=== PATIENT | female | born 1945 | race Caucasian/White ===

== ENCOUNTER 2021-04-13 11:05 | Observation (INO) ==
--- NOTE | 2020-09-16 15:51 | PAT Medication Instructions ---
Medication Instructions Date of Service September 16, 2020 Home Medications Medication Instructions Recorded hydrocodone 5 mg-acetaminophen 325 1 tab PO TID PRN #90 tab 08/26/20 mg tablet gabapentin 300 mg capsule 300 mg PO BID #60 cap 09/16/20 ssrvvxy-iquzxabpd-ajyo tablet 1 tab PO QAM cholecalciferol (vitamin D3) 50 mcg (2,000 unit) capsule 50 mcg PO QAM clotrimazole 1 % topical cream 1 applic TOPICAL BID diclofenac sodium 1 % topical gel (Voltaren) 2 g TOPICAL QID PRN guaifenesin 600 mg tablet, extended release 12 hr (Mucinex) 600 mg PO BID PRN ipratropium 18 mcg-albuterol 103 mcg/actuation aerosol inhaler 2 spray INHALATION QID PRN naloxone 0.4 mg/mL injection solution 0.4 mg IM Q2M PRN peg 400-propylene glycol 0.4 %-0.3 % eye drops (Systane (propylene glycol)) 1 drp OPHTHALMIC (EYE) DAILY PRN pseudoephedrine HCl 30 mg tablet (Sudafed) 30 mg PO Q6H PRN simethicone 125 mg capsule (Gas Relief (simethicone)) 125 mg PO DAILY PRN trazodone 50 mg tablet 25 mg PO HS fluticasone propionate 50 mcg/actuation nasal spray,suspension 2 spray INTRANASAL DAILY PRN hydrocodone 5 mg-acetaminophen 325 mg tablet 1 tab PO TID PRN loratadine 10 mg tablet 10 mg PO QAM meloxicam 7.5 mg tablet 7.5 mg PO QAM metoprolol succinate 50 mg tablet,extended release 24 hr 50 mg PO QAM mirabegron 25 mg tablet,extended release 24 hr (Myrbetriq) 25 mg PO QAM gabapentin 300 mg capsule 300 mg PO BID Continue as directed naloxone 0.4 mg/mL injection solution 0.4 mg IM Q2M PRN (if needed) ASK your surgeon for instructions meloxicam 7.5 mg tablet 7.5 mg PO QAM STOP taking 24 hours before surgery clotrimazole 1 % topical cream 1 applic TOPICAL BID diclofenac sodium 1 % topical gel (Voltaren) 2 g TOPICAL QID PRN DO NOT take the morning of surgery updixkv-zqngaoxjj-eobb tablet 1 tab PO QAM cholecalciferol (vitamin D3) 50 mcg (2,000 unit) capsule 50 mcg PO QAM guaifenesin 600 mg tablet, extended release 12 hr (Mucinex) 600 mg PO BID PRN pseudoephedrine HCl 30 mg tablet (Sudafed) 30 mg PO Q6H PRN simethicone 125 mg capsule (Gas Relief (simethicone)) 125 mg PO DAILY PRN loratadine 10 mg tablet 10 mg PO QAM mirabegron 25 mg tablet,extended release 24 hr (Myrbetriq) 25 mg PO QAM Take morning of surgery With a small sip of water, OTHERWISE NOTHING TO EAT OR DRINK AFTER MIDNIGHT: ipratropium 18 mcg-albuterol 103 mcg/actuation aerosol inhaler 2 spray INHALATION QID PRN (if needed) peg 400-propylene glycol 0.4 %-0.3 % eye drops (Systane (propylene glycol)) 1 drp OPHTHALMIC (EYE) DAILY PRN (if needed) fluticasone propionate 50 mcg/actuation nasal spray,suspension 2 spray INTRANASAL DAILY PRN (if needed) hydrocodone 5 mg-acetaminophen 325 mg tablet 1 tab PO TID PRN (okay to take up to 4 hours prior to surgery if needed) metoprolol succinate 50 mg tablet,extended release 24 hr 50 mg PO QAM gabapentin 300 mg capsule 300 mg PO BID Take evening before surgery guaifenesin 600 mg tablet, extended release 12 hr (Mucinex) 600 mg PO BID PRN (if needed) ipratropium 18 mcg-albuterol 103 mcg/actuation aerosol inhaler 2 spray INHALATION QID PRN (if needed) peg 400-propylene glycol 0.4 %-0.3 % eye drops (Systane (propylene glycol)) 1 drp OPHTHALMIC (EYE) DAILY PRN (if needed) pseudoephedrine HCl 30 mg tablet (Sudafed) 30 mg PO Q6H PRN (if needed) simethicone 125 mg capsule (Gas Relief (simethicone)) 125 mg PO DAILY PRN (if needed) trazodone 50 mg tablet 25 mg PO HS fluticasone propionate 50 mcg/actuation nasal spray,suspension 2 spray I NTRANASAL DAILY PRN (if needed) hydrocodone 5 mg-acetaminophen 325 mg tablet 1 tab PO TID PRN (if needed) gabapentin 300 mg capsule 300 mg PO BID Other Notes If you have any questions please call us at [phone] or [phone] or [phone] or [phone]
--- NOTE | 2020-09-17 13:43 | Anesthesiology Consultation ---
Date of Service September 17, 2020 Assessment & Plan (1) Encounter for pre-operative examination: Chart Review Chart Review: Acceptable Risk for Surgery (pending preop Covid testing results ) and Patient seen in Pre Admission Testing -Discussed c-spine results with Dr. Monroy- patient is having chronic mild neck pain- ongoing x years. No significant neurological symptoms noted with neck movement such as numbness, tingling or arm weakness. Will send FYI note to PCP informing of c-spine x rays to monitor as outpatient at PCP discretion. Pt is to call PCP if neurological symptoms occur in the future. Will need to use caution with neck movement with patient especially neck flexion. Per PAT appt on 09/17/20, patient denies and travel or large group activities. No known Covid positive contacts or Covid related symptoms. No known Covid infection in the past 90 days. Pt is vaccinated for Covid. Preop Covid testing scheduled 10/29/20= will await results. Educated on importance of self quarantining, social distancing and wearing mask in public both for the patient after Covid testing done Teaching & Discussion Pre-Anesthesia Teaching/Discussion Notes: Instructed NPO after midnight before surgery,except medications with 15 cc of water. Medication instructions provided according to the PAT guidelines. History Surgery Operation Date: 10/31/20 11:10 Proposed Procedures p Right Reverse Total Shoulder Arthroplasty - Ravindra Stark, Height/Weight Height: 4 ft 11 in Weight: 74.8 kg Allergies Allergy/AdvReac Type Severity Reaction Status Date / Time dog dander Allergy Mild Rhinitis Verified 09/17/20 13:47 Penicillins Allergy Mild as child Verified 09/11/20 10:27 doesn't remember cat dander Allergy Rhinitis Verified 09/17/20 13:47 ragweed pollen Allergy Rhinitis Verified 09/17/20 13:47 Medications Home Medications Medication Instructions Recorded Confirmed Last Taken cktxhik-bjvwmpeva-ompy tablet 1 tab PO QAM 07/01/20 09/11/20 Unknown cholecalciferol (vitamin D3) 50 50 mcg PO QAM 07/01/20 09/11/20 Unknown mcg (2,000 unit) capsule clotrimazole 1 % topical cream 1 applic TOPICAL BID 07/01/20 09/11/20 Unknown diclofenac sodium 1 % topical gel 2 g TOPICAL QID PRN 07/01/20 09/11/20 Unknown (Voltaren) guaifenesin 600 mg tablet, 600 mg PO BID PRN 07/01/20 09/11/20 Unknown extended release 12 hr (Mucinex) ipratropium 18 mcg-albuterol 103 2 spray INHALATION QID PRN 07/01/20 09/11/20 Unknown mcg/actuation aerosol inhaler naloxone 0.4 mg/mL injection 0.4 mg IM Q2M PRN 07/01/20 09/11/20 Unknown solution peg 400-propylene glycol 0.4 %-0.3 1 drp OPHTHALMIC (EYE) DAILY PRN 07/01/20 09/11/20 Unknown % eye drops (Systane (propylene glycol)) pseudoephedrine HCl 30 mg tablet 30 mg PO Q6H PRN 07/01/20 09/11/20 Unknown (Sudafed) simethicone 125 mg capsule (Gas 125 mg PO DAILY PRN 07/01/20 09/11/20 Unknown Relief (simethicone)) trazodone 50 mg tablet 25 mg PO HS tab 07/01/20 09/11/20 Unknown fluticasone propionate 50 2 spray INTRANASAL DAILY PRN 07/30/20 09/11/20 Unknown mcg/actuation nasal spray,suspension hydrocodone 5 mg-acetaminophen 325 1 tab PO TID PRN #90 tab 08/26/20 09/11/20 Un known mg tablet loratadine 10 mg tablet 10 mg PO QAM 09/11/20 09/11/20 Unknown meloxicam 7.5 mg tablet 7.5 mg PO QAM 09/11/20 09/11/20 Unknown metoprolol succinate 50 mg 50 mg PO QAM 09/11/20 09/11/20 Unknown tablet,extended release 24 hr mirabegron 25 mg tablet,extended 25 mg PO QAM 09/11/20 09/11/20 Unknown release 24 hr (Myrbetriq) gabapentin 300 mg capsule 300 mg PO BID #60 cap 09/16/20 Unknown Past Medical History Medical History (Updated 09/17/20 @ 13:51 by Darlene White PA-C) Allergic rhinitis Asthma Breathing stable Chronic back pain Chronic sinusitis Hypertension Lyme disease Dx'ed 6-7 years ago Residual word finding/memory issues Osteoarthritis Osteopenia Rheumatoid arthritis Follows with rheum- Dr Frankel Urinary incontinence Exercise / Class Metabolic Activity III < 4 Walking/Shop/Light housework (no chest pain or SOB with short distance, flat surface ambulation- uses walker for support secondary to right knee and shoulder pain ) Past Family History Family History Aunt Breast cancer Father Liver disease Alcohol abuse Mother Alzheimer disease Denies family history of Ovarian cancer Prostate cancer Colorectal cancer Past Surgical History Surgical History History of sinus surgery S/P carpal tunnel release b/l S/P cholecystectomy Status post left knee replacement Past Anesthesia History No Hx of Anesthesia Complications (with exception with PONV ) and No Family Hx of Anesthesia Complications History of PONV History of PONV (improved with IV anti-nausea medication ) and Hx of Motion Sickness (occ) Social History Smoking Status: Never smoker Do You Dip or Chew Tobacco: No Hx Alcohol Use: No Hx Substance Use: No substance use type: does not use Review of Systems Reflux- relieved OTC antacids Hx of snoring, no witnessed apnea- no hx of sleep study Patient denies chest pain, shortness of breath at rest, cough, wheezing, palpitations. No hx of seizures, stroke, LA. No hx of blood clots or blood transfusions Physical Exam Vital Signs VITALS BP 117/69 P 80 TEMP 98.6 SP02 98% RESP 16 Constitutional no acute distress ENMT Mouth: no TMJ clicking Thyromental Distance: > or= 3.5 Finger Breadths Mallampati Class: I (smaller airway ) Missing molars Neck + short neck and + limited neck extension (mild to modearte ) Respiratory normal respiratory effort; no respiratory distress Auscultation: lungs clear to auscultation bilaterally; no wheezes Cardiovascular Rate/Rhythm: regular rate and regular rhythm Heart Sounds: no murmur Vessels: no carotid bruit Musculoskeletal Spine: no pain with cervical ROM Extremities: extremities normal to inspection Psychiatric Orientation: alert Lab Results Anesthesia Preop Results Results Anesthesia Widget: WBC 7.40 K/uL (4.8-10.8) 09/17/20 Hgb 15.0 g/dL (12.0-16.0) 09/17/20 Hct 46.7 % (37-47) 09/17/20 Plt 381 K/uL (130-400) 09/17/20 Na 139 mmol/L (136-145) 09/17/20 K 4.7 mmol/L (3.5-5.1) 09/17/20 Cl 107 mmol/L (98-107) 09/17/20 CO2 27 mmol/L (21-32) 09/17/20 BUN 22 mg/dl (7-18) H 09/17/20 Creat 0.89 mg/dl (0.6-1.2) 09/17/20 Glucose Level 95 mg/dl (70-99) 09/17/20 PT 10.0 Seconds (9.0-12.0) 09/17/20 PTT 26.0 Seconds (21.0-31.0) 09/17/20 INR 1.0 (0.9-1.1) 09/17/20 Blood Type B Positive 09/17/20 Antibody Screen NEGATIVE 09/17/20 Testing Electrocardiogram Date: 09/17/20 Findings: + NSR @ (62bpm ) Normal EKG per cardio Chest X-Ray Date: 09/17/20 Findings: + NAD Moderate hiatus hernia. Tortuous thoracic aorta. Cervical Spine Date: 09/17/20 FINDINGS: Demineralized appearance of the bones. Severe intervertebral disc space narrowing with moderate spondylitic spurring redemonstrated at C4-C5, C5- C6 and C6-C7. Moderate to severe multilevel facet arthrosis redemonstrated along with severe degeneration at C1-C2 with chronic erosions of the dens. 4 mm anterolisthesis C3 on C4 with neutral and flexion, resolving with extension. Alignment is otherwise satisfactory. The C5-C7 levels are suboptimally visualized secondary to overlying soft tissue. No prevertebral edema. Unchanged lucent focus of the occipital calvarium. IMPRESSION: 4 mm anterolisthesis C3 on C4 appears unchanged from the 05/14/2020 exam. This however does resolve with extension suggestive of instability. Demineralized appearance of the bones with degenerative changes as above.
--- NOTE | 2021-04-09 14:10 | Anesthesiology Consultation ---
Date of Service April 09, 2021 Assessment & Plan (1) Encounter for pre-operative examination: Chart Review Chart Review: Acceptable Risk for Surgery (from anesthesia standpoint pending preop Covid testing and DOS labs ) and Patient NOT seen in Pre Admission Testing -No preop labs ordered- will need CBC with diff, PRP and coags for DOS. Pt seen in PAT 09/17/20 (rescheduled due to Covid surge)- per anesthesia consultation from 09/17/20= "-Discussed c-spine results with Dr. Monroy- patient is having chronic mild neck pain- ongoing x years. No significant neurological symptoms noted with neck movement such as numbness, tingling or arm weakness. Will send FYI note to PCP informing of c-spine x rays to monitor as outpatient at PCP discretion. Pt is to call PCP if neurological symptoms occur in the future. Will need to use caution with neck movement with patient especially neck flexion." Per nursing assessment 04/08/2021, patient denies any recent travel. No known Covid infection in the past 90 days. Patient is fully vaccinated for Covid. No known Covid positive exposures or Covid related symptoms. Preop Covid testing 04/09/2021 = results pending Patient was seen by rheumatology 03/13/2021 = seen for follow-up on osteoarthritis, Sjogren's, inflammatory arthritis, fibromyalgia. Has reported benefit from Plaquenil in the past as well as prednisone and has a history of Sjogren's/seronegative arthritis. Will start Plaquenil 200 mg daily. Will update blood work. Continue current medications for fibromyalgia. Follow-up in 3 to 4 months. History Surgery Operation Date: 04/13/21 12:30 Proposed Procedures p Right Reverse Total Shoulder Arthroplasty - Ravindra Stark DO Height/Weight Height: 5 ft Weight: 74.843 kg Allergies Allergy/AdvReac Type Severity Reaction Status Date / Time cat dander Allergy Mild Rhinitis Verified 04/08/21 13:19 dog dander Allergy Mild Rhinitis Verified 04/08/21 13:19 ragweed pollen Allergy Mild Rhinitis Verified 04/08/21 13:19 Penicillins Allergy Unknown as child Verified 04/08/21 13:19 doesn't remember Medications Home Medications Medication Instructions Recorded Confirmed Last Taken sjpchxz-yupykvppm-sgru tablet 1 tab PO QAM 07/01/20 04/08/21 Unknown cholecalciferol (vitamin D3) 50 50 mcg PO QAM 07/01/20 04/08/21 Unknown mcg (2,000 unit) capsule clotrimazole 1 % topical cream 1 applic TOPICAL BID 07/01/20 04/08/21 Unknown diclofenac sodium 1 % topical gel 2 g TOPICAL QID PRN 07/01/20 04/08/21 Unknown (Voltaren) ipratropium 18 mcg-albuterol 103 2 spray INHALATION QID PRN 07/01/20 04/08/21 Unknown mcg/actuation aerosol inhaler peg 400-propylene glycol 0.4 %-0.3 1 drp OPHTHALMIC (EYE) DAILY PRN 07/01/20 04/08/21 Unknown % eye drops (Systane (propylene glycol)) pseudoephedrine HCl 30 mg tablet 30 mg PO Q6H PRN 07/01/20 04/08/21 Unknown (Sudafed) simethicone 125 mg capsule (Gas 125 mg PO DAILY PRN 07/01/20 04/08/21 Unknown Relief (simethicone)) trazodone 50 mg tablet 25 mg PO HS tab 07/01/20 04/08/21 Unknown fluticasone propionate 50 2 spray INTRANASAL DAILY PRN 07/30/20 04/08/21 Unknown mcg/actuation nasal spray,suspension metoprolol succinate 50 mg 50 mg PO QAM 09/11/20 04/08/21 Unknown tablet,extended release 24 hr aspirin 81 mg tablet,delayed 81 mg PO DAILY 09/30/20 04/08/21 Unknown release (Adult Aspirin Regimen) oxybutynin chloride 5 mg tablet 5 mg PO DAILY #30 tab 09/30/20 04/08/21 Unknown loratadine 10 mg tablet 10 mg PO QAM #90 tab 11/05/20 04/08/21 Unknown miscellaneous medical supply See Rx Instructions .ROUTE 11/18/20 12/23/20 Unknown .COMPLEX #1 ea miscellaneous medical supply See Rx Instructions .ROUTE 11/18/20 12/23/20 Unknown .COMPLEX #1 ea mirabegron 50 mg tablet,extended 50 mg PO DAILY 12/01/20 04/08/21 Unknown release 24 hr (Myrbetriq) gabapentin 300 mg capsule 300 mg PO BID #60 cap 03/09/21 04/08/21 Unknown venlafaxine 75 mg capsule,extended 225 mg PO DAILY #90 cap 03/09/21 04/08/21 Unknown release 24 hr (Effexor XR) hydrocodone 5 mg-acetaminophen 325 1 tab PO TID PRN #90 tab 04/06/21 04/08/21 Unknown mg tablet meloxicam 7.5 mg tablet 7.5 mg PO BID 04/08/21 04/08/21 Unknown nitrofurantoin 100 mg PO Q12H 7 Days #14 cap 04/09/21 Unknown monohydrate/macrocrystals 100 mg capsule (Macrobid) Past Medical History Medical History (Updated 04/09/21 @ 14:20 by Darlene White PA-C) Allergic rhinitis Asthma No inhaler rx Chronic back pain Chronic sinusitis Depression On Effexor per 11/2020 PCP note Frequent UTI GERD (gastroesophageal reflux disease) Hypertension Irregular heart beat NO CARDS Lyme disease Dx'ed 6-7 years ago Residual word finding/memory issues Neuropathy Osteopenia Rheumatoid arthritis Follows with rheum- Dr Frankel Sjogrens syndrome Urinary incontinence Follows with urology Past Family History Family History Aunt Breast cancer Father Liver disease Alcohol abuse Hypertension Mother Alzheimer disease Other No family history of adverse response to anesthesia Denies family history of Ovarian cancer Prostate cancer Colorectal cancer Past Surgical History Surgical History History of colonoscopy History of sinus surgery History of tonsillectomy and adenoidectomy Nausea and vomiting after administration of anesthetic agent S/P carpal tunnel release b/l S/P cholecystectomy Status post left knee replacement George teeth removed Social History Smoking Status: Never smoker Do You Dip or Chew Tobacco: No Hx Alcohol Use: No Hx Substance Use: No substance use type: does not use Testing Laboratory Results 04/09/21= UA: 100+ protein, moderate urine blood, positive urine nitrite, large leukocyte esterase, >100,000 bacteria (started on Macrobid 04/09/21 by urology- urology waiting on final urine culture for sensitivity- surgeon's office was updated- will leave to Dr. Stark discretion on how to proceed) Electrocardiogram Date: 09/17/20 Findings: + NSR @ (62bpm ) Normal EKG per cardio Chest X-Ray Date: 09/17/20 Findings: + NAD Moderate hiatus hernia. Tortuous thoracic aorta. Cervical Spine Date: 09/17/20 FINDINGS: Demineralized appearance of the bones. Severe intervertebral disc space narrowing with moderate spondylitic spurring redemonstrated at C4-C5, C5- C6 and C6-C7. Moderate to severe multilevel facet arthrosis redemonstrated along with severe degeneration at C1-C2 with chronic erosions of the dens. 4 mm anterolisthesis C3 on C4 with neutral and flexion, resolving with extension. Alignment is otherwise satisfactory. The C5-C7 levels are suboptimally visualized secondary to overlying soft tissue. No prevertebral edema. Unchanged lucent focus of the occipital calvarium. IMPRESSION: 4 mm anterolisthesis C3 on C4 appears unchanged from the 05/14/2020 exam. This however does resolve with extension suggestive of instability. Demineralized appearance of the bones with degenerative changes as above.
--- NOTE | 2021-04-13 06:27 | History & Physical Report ---
Date of Service April 13, 2021 Assessment & Plan (1) Rotator cuff arthropathy of right shoulder: We will proceed with a right reverse shoulder arthroplasty. Postoperatively she will be placed in a sling and kept overnight in the hospital for postoperative medical management. She plans to use [facility] upon discharge. History of Present Illness Chief Complaint: Cuff arthropathy of the right shoulder. Primary Care Provider: Yuli Morgan DO Baltazar is a pleasant 75-year-old female who is been doing with chronic worsening right shoulder pain and weakness. She does live alone. X-rays and clinical examination have been diagnostic for cuff arthropathy of the right shoulder. After failing years of conservative treatment, including multiple injections, she has elected to proceed with a right reverse shoulder arthroplasty. Allergies Allergy/AdvReac Type Severity Reaction Status Date / Time cat dander Allergy Mild Rhinitis Verified 04/08/21 13:19 dog dander Allergy Mild Rhinitis Verified 04/08/21 13:19 ragweed pollen Allergy Mild Rhinitis Verified 04/08/21 13:19 Penicillins Allergy Unknown as child Verified 04/08/21 13:19 doesn't remember Home Medications Medication Instructions Recorded Confirmed Type msliakp-lypfqtnle-jbqi tablet 1 tab PO QAM 07/01/20 04/08/21 History cholecalciferol (vitamin D3) 50 50 mcg PO QAM 07/01/20 04/08/21 History mcg (2,000 unit) capsule clotrimazole 1 % topical cream 1 applic TOPICAL BID 07/01/20 04/08/21 History diclofenac sodium 1 % topical gel 2 g TOPICAL QID PRN 07/01/20 04/08/21 History (Voltaren) ipratropium 18 mcg-albuterol 103 2 spray INHALATION QID PRN 07/01/20 04/08/21 History mcg/actuation aerosol inhaler peg 400-propylene glycol 0.4 %-0.3 1 drp OPHTHALMIC (EYE) DAILY PRN 07/01/20 History % eye drops (Systane (propylene glycol)) pseudoephedrine HCl 30 mg tablet 30 mg PO Q6H PRN 07/01/20 04/08/21 History (Sudafed) simethicone 125 mg capsule (Gas 125 mg PO DAILY PRN 07/01/20 04/08/21 History Relief (simethicone)) trazodone 50 mg tablet 25 mg PO HS tab 07/01/20 04/08/21 History fluticasone propionate 50 2 spray INTRANASAL DAILY PRN 07/30/20 04/08/21 History mcg/actuation nasal spray,suspension metoprolol succinate 50 mg 50 mg PO QAM 09/11/20 04/08/21 History tablet,extended release 24 hr aspirin 81 mg tablet,delayed 81 mg PO DAILY 09/30/20 04/08/21 History release (Adult Aspirin Regimen) oxybutynin chloride 5 mg tablet 5 mg PO DAILY #30 tab 09/30/20 04/08/21 Rx loratadine 10 mg tablet 10 mg PO QAM #90 tab 11/05/20 04/08/21 Rx miscellaneous medical supply See Rx Instructions .ROUTE 11/18/20 12/23/20 Rx .COMPLEX #1 ea miscellaneous medical supply See Rx Instructions .ROUTE 11/18/20 12/23/20 Rx .COMPLEX #1 ea mirabegron 50 mg tablet,extended 50 mg PO DAILY 12/01/20 04/08/21 History release 24 hr (Myrbetriq) gabapentin 300 mg capsule 300 mg PO BID #60 cap 03/09/21 04/08/21 Rx venlafaxine 75 mg capsule,extended 225 mg PO DAILY #90 cap 03/09/21 04/08/21 Rx release 24 hr (Effexor XR) hydrocodone 5 mg-acetaminophen 325 1 tab PO TID PRN #90 tab 04/06/21 04/08/21 Rx mg tablet meloxicam 7.5 mg tablet 7.5 mg PO BID 04/08/21 04/08/21 History nitrofurantoin 100 mg PO Q12H 7 Days #14 cap 04/09/21 Rx monohydrate/macrocrystals 100 mg capsule (Macrobid) Past Med/Surg History Medical History Allergic rhinitis Asthma No inhaler rx Chronic back pain Chronic sinusitis Depression On Effexor per 11/2020 PCP note Frequent UTI GERD (gastroesophageal reflux disease) Hypertension Irregular heart beat NO CARDS Lyme disease Dx'ed 6-7 years ago Residual word finding/memory issues Neuropathy Osteopenia Rheumatoid arthritis Follows with rheum- Dr Frankel Sjogrens syndrome Urinary incontinence Follows with urology Surgical History History of colonoscopy History of sinus surgery History of tonsillectomy and adenoidectomy Nausea and vomiting after administration of anesthetic agent S/P carpal tunnel release b/l S/P cholecystectomy Status post left knee replacement [place] teeth removed Family History Aunt Breast cancer Father Liver disease Alcohol abuse Hypertension Mother Alzheimer disease Other No family history of adverse response to anesthesia Denies family history of Ovarian cancer Prostate cancer Colorectal cancer Social History Smoking Status: Never smoker Second Hand Exposure: No; Hx Alcohol Use: No Hx Substance Use: No Preferred Language: Lao Communication Ability: Effective Visual Impairment: No Limitations Hearing Ability: Normal Director Of Graduate Admissions Required: No Beliefs That Will Affect Care: None marital status: / Current Living Situation: Alone current occupational status: 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 Physical Exam On physical examination of the right shoulder, she has about 80 degrees of forward elevation 80 degrees of abduction. She has 3 out of 5 motor strength with full can testing 4-5 motor strength with external rotation. She has a lot of pain with range of motion. Constitutional WD/WN, vitals as above Eyes PERRL, conjunctivae normal, anicteric sclerae ENMT external ear and nose normal, oropharynx normal Neck trachea midline, no thyromegaly Respiratory normal respiratory effort Cardiovascular RRR, no murmur, no edema Gastrointestinal (Abdomen) normal bowel sounds, soft, nontender, no hepatosplenomegaly Psychiatric A+Ox3, euthymic affect Results & Data Results & Data Laboratory Results . Diagnostic Findings X-rays of the right shoulder do show advanced osteoarthritis with superior wear of the glenoid. There is superior migration of the humeral head and articulation with the acromion. PG Care Time/CCT Total # of Minutes Spent Total Time Spent with Patient: Total time spent is greater than 50% in coordination of care (as documented) at patient's floor/unit and/or counseling patient: Coding Level of Care Code None Diagnoses Rotator cuff arthropathy of right shoulder M12.811
[~2021-04-13 11:05] MED LIST: ACETAMINOPHEN 500 MG TAB PO SCH; BUPIVACAINE 0.5 % 5 MG/1 ML PF 10ML VIAL ONE; FAMOTIDINE 20 MG TAB PO SCH; GABAPENTIN 300 MG CAP PO SCH; Ketorolac (*for OR use only*) 30 MG, dexAMETHasone 4 MG, KETAMINE HCL (**OR use only) 1... INFIL SCH; LIDOCAINE 2% 2 ML VIAL/AMP(20MG/ML) INFIL ONE; LR 15ML/HR IV SCH; LR 60ML/HR IV SCH; MIDAZOLAM HCL 1 MG/ML 2ML VIAL ONE; ONDANSETRON INJ 2 MG/ML 2 ML VIAL ONE; PROPOFOL IV EMULSION 10 MG/ML 20 ML VIAL IV ONE; ROPIVACAINE 0.5% HCL/PF 150 MG, BUPIVACAINE 0.75% MPF 20 ML, EPINEPHrine 30MG/30ML (OR ... INSTIL SCH; TRANEXAMIC ACID 1,000 MG **IV Intra-op IV SCH; TRANEXAMIC ACID 1,000 MG **IV Pre-op IV SCH; ceFAZolin 1000MG 1,000 MG/7.5 ML SYR IV SCH; dexAMETHasone 4 MG TAB PO SCH; fentaNYL citrate 100 MCG/2 ML VIAL ONE
[2021-04-13] MEDS ORDERED: ORTHO JOINT ANESTHETIC ONE (11:21)
[2021-04-13] MEDS ORDERED: ATROPINE SULFATE 0.1 MG/ML 10ML SYR IV PRN (11:52)
[2021-04-13] MEDS ORDERED: ePHEDrine sulfate 50 MG/ML AMP IV PRN (11:52)
[2021-04-13] MEDS ORDERED: HYDROmorphone INJ 2 MG/ML SYR/VIAL IV PRN (11:52)
[2021-04-13] MEDS ORDERED: fentaNYL citrate 100 MCG/2 ML VIAL IV PRN (11:52)
[2021-04-13] MEDS ORDERED: PROMETHAZINE HCL 12.5 MG in SODIUM CHLORIDE 0.9% 50 ML IV PRN (11:52)
[2021-04-13] MEDS ORDERED: ONDANSETRON INJ 2 MG/ML 2 ML VIAL IV PRN ×2 (11:52→15:34)
[2021-04-13 12:01] LABS: Basophils # (auto) 0.04 K/uL (0-0.2); Basophils % (auto) 0.6 %; Eosinophils % (auto) 8.7 %; Hematocrit (blood only) 45.7 % (37-47); Hemoglobin 15.2 g/dL (12.0-16.0); Immature Granulocytes # (auto) 0.01 K/uL (0.00-0.02); Immature Granulocytes % (auto) 0.1 %; Lymphocytes # (auto) 1.28 K/uL (1.2-3.4); Lymphocytes % (auto) 18.6 %; Mean Corpuscular Hgb Conc 33.3 g/dL (32-36); Mean Corpuscular Volume 90.3 fL (80-100); Mean Platelet Volume 9.8 fL (7.4-10.4); Monocytes # (auto) 0.75 K/uL (0.11-0.59); Monocytes % (auto) 10.9 %; Neutrophils # (auto) 4.22 K/uL (1.4-6.5); Neutrophils % (auto) 61.1 %; Platelet Count 307 K/uL (130-400); RDW Coefficient of Variation 14.6 % (11.5-14.5); RDW Standard Deviation 48.5 fL (36.4-46.3); Red Blood Count 5.06 M/uL (4.2-5.4)
[2021-04-13 12:05] LABS: Prothrombin Time 10.8 Seconds (9.0-12.0)
[2021-04-13 12:13] LABS: BUN Creatinine Ratio 22.6 (10-20); Calcium 9.6 mg/dl (8.5-10.1); Creatinine Clr Calc Pharmacy 53.9 ml/min; Est GFR (African American) 79.9 ml/min; Potassium 4.4 mmol/L (3.5-5.1)
[2021-04-13] MEDS ORDERED: SUGAMMADEX SODIUM 200 MG/2 ML VIAL IV ONE (13:25)
--- NOTE | 2021-04-13 13:32 | Operative Report ---
PG Post Operative Report Pre & Post Diagnosis Operation Date: 04/13/21 14:20 Pre-Op Diagnosis: Rotator cuff arthropathy of right shoulder with tendinopathy long head of the biceps tendon Post-Op Diagnosis: Rotator cuff arthropathy of right shoulder with tendinopathy of the long head of the biceps tendon I identified the patient and participated in the time-out.: Yes Procedure Operation Date: 04/13/21 14:20 Actual Procedures p Right Reverse Total Shoulder Arthroplasty(Right) with open biceps tenodesis as a distinct and separate procedure (modifier 59)- Ravindra Stark DO Surgeon Ravindra Stark, Cogeneration Operator Ravindra Georges PAC Estimated Blood Loss 200 Findings Consistent with Post-Op Diagnosis Specimens Right humeral head Complications none Disposition Disposition: Recovery Room Indications Delaney is a pleasant 75-year-old female who is been doing with chronic worsening right shoulder pain. X-rays and clinical examination were diagnostic for cuff arthropathy of the right shoulder. After failing conservative treatment, she elected proceed with a right reverse shoulder arthroplasty. Description of Procedure A CPT code modifier 59: The long head of the biceps tendon was enlarged and inflamed consistent with tendinopathy. A tenodesis was opted. This was a separate and distinct portion of the procedure. For these reasons, a CPT code modifier 59 will be added to this case. Implants used: I used a [employer] Comprehensive reverse total shoulder arthroplasty system with a size 8 press fit micro humeral stem, a +6 offset humeral tray and a standard h umeral bearing, a 25 mm large augment baseplate with a 6.5 mm central screw and superior, posterior, and inferior locking screws, and a size 40 mm eccentric glenosphere. Delaney arrived at [facility] for the above procedure. She was seen in the preoperative holding area and the operative extremity was identified and signed. She was given a preoperative antibiotic, TXA, and an interscalene nerve block. She was taken back to the operating room, laid on table in supine position, and put under general anesthesia. She was then put into the beachchair position. The shoulder was then prepped and draped in sterile fashion. A timeout was done and the patient and the operative extremity was properly identified. A deltopectoral approach was used. Dissection was taken down through the fascia and the deltoid was retracted laterally and the conjoined tendon was retracted medially. The anterior shoulder was exposed. The biceps groove was opened up and the biceps tendon was examined extensively. The biceps tendon demonstrated enlargement and inflammatory changes consistent with longstanding inflammation in the context of osteoarthritis and cuff arthropathy. The long head of the biceps tendon was then tenodesed to the upper border of the pectoralis major. This was a separate and distinct portion of the procedure. The subscapularis was then directly released off the lesser tuberosity with a peel technique. The inferior capsule was released and the humeral head was dislocated. A canal finding reamer was sent down the center of the humeral canal. Sequential reaming up to a size 8 reamer was done. Off that reamer, a proximal humeral resection guide was placed. The proximal humerus was resected at 135 of inclination and 25 of retroversion. Osteophytes were then removed and the glenoid was exposed. Time was spent doing a complete capsular and labral release. The glenoid guide was then placed in the inferior aspect of the glenoid. A 3.2 mm Steinmann pin was then placed into the glenoid vault at 10 of inclination. The glenoid baseplate was then reamed. The final size 25 mm large augment baseplate was then impacted in the place. A 6.5 mm central screw was then placed followed by superior, posterior, and inferior locking screws. A 40 eccentric glenosphere was then impacted into place. Surrounding soft tissues were then injected with 100 cc an orthopedic pain control cocktail. The proximal humerus was then exposed. Sequential broaching of the humerus up to a size 8 broach was done. Off that broach a +6 offset humeral tray was trialed. The shoulder was then reduced, brought through a full range of motion, and felt to be stable. The shoulder was then dislocated and the broach was removed. The final size 8 micro press-fit humeral stem was then impacted into place. A standard humeral bearing was then snapped onto a +6 offset humeral tray. The humeral tray was then impacted onto the humeral stem. The shoulder was once again reduced, brought through a full range of motion, and felt to be stable. The subscapularis was chronically torn and not repairable. A dilute betadyne lavage was then done for 3 minutes. The joint was then irrigated with normal saline solution. Hemostasis was obtained. The interval was closed with 2-0 Vicryl suture. The skin was then closed with 2-0 Vicryl and landon. A Silverlon dressing was placed and the arm was rested in a regular arm sling. She was then extubated and transferred to a hospital bed. She taken to the postanesthesia care unit in stable condition. She tolerated the procedure well. Ravindra Georges PA-C, was present for the entire procedure. He was critical for patient positioning, prepping, draping, retraction exposure, wound closure and application of sterile dressing. I attest to the content of the Intraoperative Record and any orders documented therein. Any exceptions are noted below.
[2021-04-13] MEDS ORDERED: ePHEDrine sulfate 50 MG/ML SYR ONE (13:34)
[2021-04-13] MEDS ORDERED: PHENYLEPHRINE 100MCG/ML 5ML SYR ONE (13:34)
[2021-04-13] MEDS ORDERED: ONDANSETRON INJ 2 MG/ML 2 ML VIAL ONE (13:34)
[2021-04-13] MEDS ORDERED: DEXAMETHASONE SOD INJ 4 MG/ML VIAL ONE (13:34)
--- NOTE | 2021-04-13 14:28 | XRay Report ---
XR shoulder RT min 2V routine CLINICAL HISTORY: Post shoulder surgery TECHNIQUE: 2 views of the right shoulder were obtained. Comparison: Comparison is made to CT shoulder 12/27/2020 FINDINGS: Patient is status post shoulder arthroplasty with expected postsurgical changes including soft tissue swelling, subcutaneous emphysema, and surgical staple placement. No periarticular lucency or hardwar e fracture is seen. Joint spaces are well-preserved. The overlying soft tissues are unremarkable. The visualized portions of the lungs are clear. IMPRESSION: Expected postoperative appearance status post placement of shoulder arthroplasty. ACT 112: Negative or not required by law. Electronically signed by: Aamir Brown M.D. 04/13/2021 2:27 PM
[2021-04-13] MEDS ORDERED: METOCLOPRAMIDE HCL INJ 5 MG/ML 2 ML VIAL IV PRN (15:34)
[2021-04-13] MEDS ORDERED: NALOXONE HCL 0.4 MG/1 ML VIAL/CARP IV PRN (15:34)
[2021-04-13] MEDS ORDERED: HYDROmorphone INJ 0.5 MG/0.5 ML SYR IV PRN (15:34)
[2021-04-13] MEDS ORDERED: FLUTICASONE PROPIONATE NA SPR 16 GM BTL PRN (15:34)
[2021-04-13] MEDS ORDERED: oxyCODONE HCL IR 5 MG TAB (IMMEDIATE RELEASE) PO PRN (15:34)
[2021-04-13] MEDS ORDERED: SODIUM CHLORIDE 0.9% 1000ML 1,000 ML IV SCH (15:34)
[2021-04-13] MEDS ORDERED: DICLOFENAC SOD 1% GEL 100 GM TUBE EXT PRN (15:34)
[2021-04-13] MEDS ORDERED: bisacodyL 10 MG SUPP PR PRN (15:34)
[2021-04-13] MEDS ORDERED: MAGNESIUM HYDROXIDE SUSP 30 ML UDC PO PRN (15:34)
[2021-04-13] MEDS: ACETAMINOPHEN 500 MG TAB PO SCH ×2 (15:48→21:04)
[2021-04-13] MEDS: KETOROLAC TROMETHAMINE 15 MG/ML VIAL IV SCH ×2 (15:49→20:51)
[2021-04-13] MEDS ORDERED: ARTIFICIAL TEARS OP PRN (16:04)
--- NOTE | 2021-04-13 16:09 | Anesthesiology Progress Note ---
Date of Service April 13, 2021 Anesthesia Post Procedure Vital Signs Vital Signs: Temp Pulse Pulse Resp BP Pulse Ox 04/13/21 15:40 36.3 C L 72 16 104/69 95 04/13/21 15:19 36.4 C L 74 16 107/71 98 04/13/21 15:10 36.4 C L 74 16 107/71 98 04/13/21 14:50 36.5 C 72 21 122/68 93 04/13/21 14:40 36.5 C 73 20 110/64 93 04/13/21 14:30 36.5 C 72 17 121/68 94 04/13/21 14:20 72 15 122/68 96 04/13/21 14:10 77 21 111/65 93 04/13/21 14:00 70 15 118/76 93 04/13/21 13:53 36.5 C 71 16 110/70 92 04/13/21 11:32 36.8 C 78 18 185/91 H 91 Transfer of Care Handoff Completed per policy Notes Mental Status: alert / awake / arousable and participated in evaluation Patient Amnestic to Procedure: Yes Nausea / Vomiting: adequately controlled Pain: adequately controlled Airway Patency, RR, SpO2: stable & adequate BP & HR: stable & adequate Hydration State: stable & adequate Anesthetic Complications: no major complications apparent
[2021-04-13] MEDS: CLOTRIMAZOLE 1% CR 15 GM TUBE TOP SCH (20:48)
[2021-04-13] MEDS: ceFAZolin 2000MG 2,000 MG/15 ML SYR IV SCH (20:48)
[2021-04-13] MEDS: guaiFENesin 600 MG TABCR PO SCH (20:48)
[2021-04-13] MEDS: NITROFURANTOIN MONOHYDRATE 100 MG CAP PO SCH (20:48)
[2021-04-13] MEDS: DOCUSATE SODIUM 100 MG CAP PO SCH (20:50)
[2021-04-13] MEDS: GABAPENTIN 300 MG CAP PO SCH (20:50)
[2021-04-13] MEDS ORDERED: traZODone HCL 50 MG TAB PO SCH (21:00)
[2021-04-13] MEDS ORDERED: SENNA 8.6 MG TAB PO SCH (21:00)
[2021-04-14] MEDS: KETOROLAC TROMETHAMINE 15 MG/ML VIAL IV SCH ×2 (03:35→08:39)
[2021-04-14] MEDS: ceFAZolin 2000MG 2,000 MG/15 ML SYR IV SCH (03:35)
[2021-04-14] MEDS: ACETAMINOPHEN 500 MG TAB PO SCH ×2 (06:18→14:22)
--- NOTE | 2021-04-14 06:32 | Orthopedic Progress Note ---
Date of Service April 14, 2021 Assessment & Plan (1) Status post reverse total replacement of right shoulder: Overall she is doing very well. She is having much pain in the right shoulder. She will be seen by physical therapy today for ambulation and range of motion exercises. I gave her prescription to continue her hydrocodone at home. She can be discharged to home later today. She will follow-up with orthopedics in 2 weeks. Norm Baltazar was seen and examined at bedside this morning. Overall she is doing very well. She is not having much pain in the right shoulder. She was able to get some sleep last night. She has no complaints. Review of Systems All systems reviewed & are unremarkable except as noted in HPI & below. Physical Exam On physical examination of the right shoulder, the dressing is clean and dry. She does have some dorsiflexion of her wrist and extension of her fingers she is still numb in her thumb. She is wearing her sling as instructed. Results & Data Results & Data Laboratory Results . Diagnostic Findings Postoperative x-rays of the right shoulder show the prosthesis to be in anatomic alignment without any evidence of fracture, desiccation, or loosening. PG Care Time/CCT Total # of Minutes Spent Total Time Spent with Patient: Total time spent is greater than 50% in coordination of care (as documented) at patient's floor/unit and/or counseling patient: Coding Level of Care Code 02885 Post Operative Follow-Up Diagnoses Status post reverse total replacement of right shoulder Z96.611
--- NOTE | 2021-04-14 06:33 | Discharge Summary ---
Date of Service April 14, 2021 Admission HPI (Per Admitting) Delaney is a pleasant 75-year-old female who is been doing with chronic worsening right shoulder pain and weakness. She does live alone. X-rays and clinical examination have been diagnostic for cuff arthropathy of the right shoulder. After failing years of conservative treatment, including multiple injections, she has elected to proceed with a right reverse shoulder arthroplasty. Admission Exam (Per Admitting) On physical examination of the right shoulder, she has about 80 degrees of forward elevation 80 degrees of abduction. She has 3 out of 5 motor strength with full can testing 4-5 motor strength with external rotation. She has a lot of pain with range of motion. Principal Diagnosis Same as "Discharge Diagnosis" noted below under Discharge Instructions. Discharge Exam On physical examination of the right shoulder, the dressing is clean and dry. She does have some dorsiflexion of her wrist and extension of her fingers she is still numb in her thumb. She is wearing her sling as instructed. Discharge Data Procedures Performed Operation Date: 04/13/21 14:20 Actual Procedures p Right Reverse Total Shoulder Arthroplasty(Right) - Ravindra Stark DO Ordered Studies 04/13/21 05:00 US - OR guided needle placemen Routine Hospital Course (1) Status post reverse total replacement of right shoulder: On April 13, 2021 Delaney arrived at [facility] and underwent a right reverse shoulder replacement.complication. She had a general anesthetic and a right interscalene nerve block. Postoperatively she was placed in a sling and transferred to the general orthopedic floors. Her hospital course was uneventful. On postop day #1 her vital signs were stable and her pain was well controlled. She was able to participate well with physical therapy doing ambulation and range of motion exercises. She was then discharged home. She will follow-up with orthopedics in 2 weeks. PG Care Time/CCT Total # of Minutes Spent Total Time Spent with Patient: Total time spent is greater than 50% in coordination of care (as documented) at patient's floor/unit and/or counseling patient: Discharge Plan Discharge Items Patient Disposition: Home - Home Health Services Reason For Visit: DJD Right Shoulder Discharge Diagnosis: Right reverse shoulder replacement Activity: Per Instructions section Non-emergency contact: Surgeon Call non-emergency contact if: your wound has increased redness and your wound has increased drainage Follow-up/Referrals: Ricotta,Yuli M., DO [Primary Care Provider] - Diet: Regular Addtl Attending Provider Instructions: Activity and Therapy Recommendations: * If you are using [facility] then therapy will be provided at your home until they feel you have accomplished all of your goals. * If you are using [facility] then Physical Therapy will be provided until they feel you are ready to start Outpatient Physical Therapy. * If you are not using home therapy then Outpatient Physical Therapy should start about 3-5 days from your day of surgery. Therapy will last about 8-12 weeks * Wear your sling for 3 weeks, unless otherwise instructed. You may remove your sling to shower and to dress, but otherwise, you should be in your sling at all times, including while sleeping * The shoulder replacement is very stable and you can use your hand while in the sling * You were shown a series of exercises in the hospital. Do these exercises daily including the exercises you were shown in physical therapy. Medications: * Narcotic You will likely be sent home from the hospital with a prescription for the narcotic pain medication that worked best throughout your stay. * Other medications may be prescribed for specific circumstances. If you have any questions, please call the office at . * Resume previous home medications unless otherwise instructed Dressing Care: Leave the Silverlon dressing in place for 7 days. After 7 days you may remove the dressing. If the incision is not draining then you may leave the landon open to air. If there is a little bit of drainage or if the landon are getting stuck on your clothing then cover the incision with a dry dressing. The landon will be removed at your 2 week follow-up appointment. Showering: You may shower with the Silverlon dressing in place. Do not let the shower spray hit the dressing directly. Pat the Silverlon dressing dry. If the dressing becomes wet underneath, then simply remove the dressing. Keep the incision dry until you are 7 days out from the day of surgery. After 7 days you may remove the Silverlon dressing and shower with the landon exposed. Let soapy water run over the landon and pat them dry. Do not scrub or soak the incision. Things To Watch For: * Drainage from the incision site that occurs more than one week after your surgery. * Increased redness at the incision site. * Fever above 102 degrees Fahrenheit. * Unusual chest pain or shortness of breath. * Call [facility] at with any of the above problems Follow-Up Visit: Follow-up with Dr. Stark's PA (Ravindra Georges) 2-3 weeks after your day of surgery. He will remove your landon and answer any questions. If you have any additional questions or concerns, Dr Stark is usually in the office at the same time and will be available An appointment was probably scheduled when you signed-up for surgery in the office. If you have any questions call More detailed instructions as well as Frequently Asked Questions were provided in a folder by our office when you signed-up for surgery. Please review these instructions when you get home. If you have any further questions or concerns, please feel free to call the office at [phone] Pending Studies at Discharge: No Stand-Alone Forms: My [facility], Smoking Cessation Medications and DC Order Prescriptions: Continued loratadine 10 mg tablet 10 mg PO QAM Qty: 90 RF: 1 miscellaneous medical supply Misc See Rx Instructions .ROUTE .COMPLEX Qty: 1 RF: 0 miscellaneous medical supply Misc See Rx Instructions .ROUTE .COMPLEX Qty: 1 RF: 0 gabapentin 300 mg capsule 300 mg PO BID Qty: 60 RF: 5 venlafaxine [Effexor XR] 75 mg capsule,extended release 24hr 225 mg PO DAILY Qty: 90 RF: 3 nitrofurantoin monohyd/m-cryst [Macrobid] 100 mg capsule 100 mg PO Q12H 7 Days Qty: 14 RF: 0 simethicone [Gas Relief (simethicone)] 125 mg capsule 125 mg PO DAILY PRN (Reason: gas ) RF: 0 cholecalciferol (vitamin D3) 50 mcg (2,000 unit) capsule 50 mcg PO QAM RF: 0 utxznbh-jzipkexmf-jqhw Tablet 1 tab PO QAM RF: 0 clotrimazole 1 % cream 1 applic topical BID RF: 0 diclofenac sodium [Voltaren] 1 % gel 2 g topical QID PRN (Reason: Pain) RF: 0 ipratropium-albuterol 18-103 mcg/actuation aerosol 2 spray inhalation QID PRN (Reason: sob) RF: 0 Systane (propylene glycol) 0.4-0.3 % drops 1 drp ophthalmic (eye) DAILY PRN (Reason: Dry Eye(S)) RF: 0 pseudoephedrine HCl [Sudafed] 30 mg tablet 30 mg PO Q6H PRN (Reason: Congestion) RF: 0 trazodone 50 mg tablet 25 mg PO HS RF: 0 fluticasone propionate 50 mcg/actuation spray,suspension 2 spray intranasal DAILY PRN (Reason: allergy symptoms) RF: 0 aspirin [Adult Aspirin Regimen] 81 mg tablet,delayed release (DR/EC) 81 mg PO DAILY RF: 0 oxybutynin chloride 5 mg tablet 5 mg PO DAILY Qty: 30 RF: 2 Myrbetriq 50 mg tablet extended release 24 hr 50 mg PO DAILY RF: 0 metoprolol succinate 50 mg tablet extended release 24 hr 50 mg PO QAM RF: 0 meloxicam 7.5 mg Tablet 7.5 mg PO BID RF: 0 nitrofurantoin monohyd/m-cryst [Macrobid] 100 mg Capsule 100 mg PO BID RF: 0 hydrocodone-acetaminophen 5-325 mg tablet 1 tab PO TID PRN (Reason: pain) Qty: 30 RF: 0 Discharge Orders: Discharge Order (Routine); Ordered 04/14/21 Ordered By: Ravindra Stark Admission Data Admit Date/Time: 04/13/21 13:57 Attending Provider: Ravindra Stark Admit Provider: Ravindra Stark Primary Care Provider: Yuli Morgan
[2021-04-14] MEDS ORDERED: dexAMETHasone 4 MG TAB PO SCH (08:00)
[2021-04-14] MEDS: CLOTRIMAZOLE 1% CR 15 GM TUBE TOP SCH (08:37)
[2021-04-14] MEDS: DOCUSATE SODIUM 100 MG CAP PO SCH (08:38)
[2021-04-14] MEDS: NITROFURANTOIN MONOHYDRATE 100 MG CAP PO SCH (08:38)
[2021-04-14] MEDS: guaiFENesin 600 MG TABCR PO SCH (08:38)
[2021-04-14] MEDS: GABAPENTIN 300 MG CAP PO SCH (08:38)
[2021-04-14] MEDS ORDERED: METOPROLOL SUCC 50MG EXT REL TAB PO SCH (09:00)
[2021-04-14] MEDS ORDERED: OXYBUTYNIN CHLORIDE 5 MG TAB PO SCH (09:00)
[2021-04-14] MEDS ORDERED: ASPIRIN 81 MG ECTAB PO SCH (09:00)
[2021-04-14] MEDS ORDERED: LORATADINE 10 MG TAB PO SCH (09:00)
[2021-04-14] MEDS ORDERED: MULTIVITAMIN TAB PO SCH (09:00)
[2021-04-14] MEDS ORDERED: MIRABEGRON ER 25 MG TAB PO SCH (09:00)
[2021-04-14] MEDS ORDERED: VENLAFAXINE HCL XR 75 MG CAPXR PO SCH (09:00)
== END 2021-04-14 16:20 | disposition home health service (06) ==
LOC: ASU 11:05 → 3E 11:05